=== PATIENT | female | born 1995 | race Caucasian/White ===

== ENCOUNTER 2018-03-20 21:48 | Emergency (ER) | payer OTHER ==
[~2018-03-20] VITALS: Ht 154.9 cm; Wt 74.4 kg
[2018-03-20 21:56] VITALS: BP 156/62
[2018-03-20] MEDS ORDERED: NACL 0.9% 1,000 ML IV SCH (23:14)
[2018-03-20] MEDS ORDERED: KETOROLAC 30 MG/ML VIAL IVP ONE (23:15)
[2018-03-20] MEDS ORDERED: LORazepam 1 MG TAB PO ONE (23:15)
[2018-03-20] MEDS ORDERED: ONDANSETRON 4 MG/2 ML VIAL IVP ONE (23:15)
[2018-03-20] MEDS ORDERED: MORPHINE SULFATE 4 MG/ML SYR IVP ONE (23:15)
[2018-03-20 23:32] LABS: BASOPHILS % (AUTO) 0.3 % (0.0-2.0); EOSINOPHILS # (AUTO) 0.2 K/uL (0-0.4); EOSINOPHILS % (AUTO) 1.4 % (0.0-4.0); HEMATOCRIT 40.8 % (36-48); HEMOGLOBIN 13.4 g/dL (12.0-16.0); LYMPHOCYTES # (AUTO) 2.6 K/uL (2.5-16.5); LYMPHOCYTES % (AUTO) 19.9 % (20.5-51.1); MEAN CORPUSCULAR HEMOGLOBIN 32 pg (27-31); MEAN CORPUSCULAR HGB CONC 33 g/dL (33-37); MEAN CORPUSCULAR VOLUME 96.5 fL (80-94); MONOCYTES # (AUTO) 1.9 K/uL (0.8-1.0); MONOCYTES % (AUTO) 14.7 % (1.7-9.3); NEUTROPHILS # (AUTO) 8.3 K/uL (1.8-7.7); NEUTROPHILS % (AUTO) 63.7 % (42.2-75.2); PLATELET COUNT (AUTO) 286 K/uL (140-450); RED BLOOD CELL COUNT(AUTO) 4.23 MIL/uL (4.20-5.40); RED CELL DISTRIBUTION WIDTH 13.3 % (11.6-13.7); WHITE BLOOD COUNT (AUTO) 13.1 K/uL (4.8-10.8)
[2018-03-20 23:44] LABS: BARBITURATE, URINE NEG. ng/ml (NEG <=200); BENZODIAZEPINE, URINE NEG. ng/mL (NEG <=200); CANNABINOID, URINE POS. ng/mL (NEG <=50); COCAINE, URINE NEG. ng/mL (NEG <=300); OPIATE, URINE NEG. ng/mL (NEG <=2000); PHENCYCLIDINE SCREEN,URINE NEG. ng/mL (NEG <=25)
[2018-03-20 23:53] LABS: ALBUMIN 3.2 g/dL (3.4-5.0); ANION GAP 9.5 (8-16); CARBON DIOXIDE 27.5 mmol/L (21-32); CREATININE 0.6 mg/dL (0.6-1.3); TOTAL BILIRUBIN 0.2 mg/dL (0.0-1.0)
[2018-03-21 00:01] LABS: APPEARANCE,URINE CLOUDY (CLEAR); BILIRUBIN,URINE NEGATIVE (NEGATIVE); BLOOD, URINE MODERATE (NEGATIVE); COLOR,URINE YELLOW (YELLOW); LEUKOCYTE ESTERASE ,URINE TRACE (NEGATIVE); NITRITE, URINE POSITIVE (NEGATIVE); UGLUCOSE NEGATIVE (NEGATIVE)
[2018-03-21 00:03] LABS: RBC,URINE 20-50 /HPF (0-5)
[2018-03-21] MEDS ORDERED: cefTRIAXone 1,000 MG VIAL ONE (00:56)
[2018-03-21 02:17] VITALS: BP 156/62
== END 2018-03-21 02:19 | disposition home or self-care (01) ==
LOC: MED 21:48
DX: M54.5 Low back pain (principal); N39.0 Urinary tract infection, site not specified; F15.10 Other stimulant abuse, uncomplicated; J45.909 Unspecified asthma, uncomplicated; I10 Essential (primary) hypertension; F17.210 Nicotine dependence, cigarettes, uncomplicated
CPT/HCPCS: 36415; 74176; 80053; 80305; 81001; 81025; 83690; 85025; 87086; 87186; 96365; 96375; 99285; J0696; J1885; J2270; J2405; 99284

== ENCOUNTER 2021-03-24 15:39 | Emergency (ER) | payer OTHER ==
[~2021-03-24] VITALS: Ht 157.5 cm; Wt 59.4 kg
[2021-03-24 15:44] VITALS: BP 142/85
[2021-03-24] MEDS ORDERED: LORazepam 2 MG/ML VIAL ONE (15:54)
--- NOTE | 2021-03-24 15:58 | NUR ---
Pt taken to bed 06 via rney.
[2021-03-24] MEDS ORDERED: levETIRAcetam 1,000 MG in NACL 0.9% 100 ML IV ONE (16:00)
[2021-03-24] MEDS ORDERED: LORazepam 2 MG/ML VIAL IM ONE (16:00)
--- NOTE | 2021-03-24 16:00 | NUR ---
PT TAKEN TO ROOM BY ALEXYS, WAS HAVING SEIZURE IN HALLWAY. ERMD AND NURSE AT BEDSIDE
--- NOTE | 2021-03-24 16:05 | NUR ---
25 YEAR OLD FEMALE COMPLAINS OF WANTING TO GET REFILL FOR SEIZURE MEDICATION SHE TAKES. PT STATES SHE HAD A SEIZURE EARLIER TODAY, DID NOT HAVE ANY MEDICATION. PT AOX4, BREATHING EVEN AND UNLABORED, SKIN WARM AND DRY. BED IN LOWEST POSITION, LOCKED, BED RAIL UPX1. PMH - DENIES ALLERGIES - NKA
--- NOTE | 2021-03-24 16:05 | NUR ---
PT REFUSED ATIVAN IM INJECTION, STATES SHE DOESNT WANT ANY SHOTS AND REFUSES AFTER INFORMED OF PURPOSE TO PREVENT SEIZURES
--- NOTE | 2021-03-24 16:09 | NUR ---
PHARMACY CALLED REGARDING ANUJA, WILL BRING STAT
--- NOTE | 2021-03-24 16:11 | NUR ---
PT ON PHONE WITH MOTHER AGITATED AND SCREAMING THAT SHE WILL LEAVE AND DOES NOT WANT TO BE HERE AND ONLY WANTS PRESCRIPTION
--- NOTE | 2021-03-24 16:55 | NUR ---
2MG IM ATIVAN WASTED
--- NOTE | 2021-03-24 17:45 | NUR ---
PT STATES SHE WANTS TO LEAVE RIGHT NOW OR IS GOING TO WALK OUT, ERMD AWARE
[2021-03-24] MEDS ORDERED: LEVE750T3 PO (17:46)
[2021-03-24 17:50] VITALS: BP 138/81
--- NOTE | 2021-03-24 17:50 | NUR ---
Patient discharged with v/s stable. Written and verbal after care instructions about seizures given and explained. Patient alert, oriented and verbalized understanding of instructions. Ambulatory with steady gait. All questions addressed prior to discharge. ID band removed. Patient advised to follow up with PMD. Rx of Keppra given. Patient educated on indication of medication including possible reaction and side effects. Opportunity to ask questions provided and answered.
== END 2021-03-24 17:50 | disposition home or self-care (01) ==
LOC: MED 15:39
DX: R56.9 Unspecified convulsions (principal); J45.909 Unspecified asthma, uncomplicated; I10 Essential (primary) hypertension; G40.909 Epilepsy, unspecified, not intractable, without status epilepticus; F17.200 Nicotine dependence, unspecified, uncomplicated; F12.90 Cannabis use, unspecified, uncomplicated; F15.90 Other stimulant use, unspecified, uncomplicated; Z79.899 Other long term (current) drug therapy
CPT/HCPCS: 96365; 99284; J1953; J2060

== ENCOUNTER 2024-03-16 19:57 | Emergency (ER) | payer OTHER ==
[~2024-03-16] VITALS: Ht 154.9 cm; Wt 55.8 kg
[~2024-03-16 19:57] MED LIST: LEVE750T3 PO
[2024-03-16 20:03] VITALS: BP 125/71; PULSE 61; RESP 20; TEMP 98; O2SAT 98
[2024-03-16] MEDS ORDERED: ACET-10509 PO (20:54)
[2024-03-16] MEDS: ACETAMINOPHEN EXTRA STRENGTH 500 MG TAB PO ONE (21:00)
== END 2024-03-16 21:15 | disposition home or self-care (01) ==
LOC: MED 19:57
DX: S00.03XA Contusion of scalp, initial encounter (principal); J45.909 Unspecified asthma, uncomplicated; I10 Essential (primary) hypertension; Z86.69 Personal history of other diseases of the nervous system and sense organs; Z79.899 Other long term (current) drug therapy; W22.8XXA Striking against or struck by other objects, initial encounter; Y92.89 Other specified places as the place of occurrence of the external cause; Y93.89 Activity, other specified; Y99.8 Other external cause status
CPT/HCPCS: 70450; 99284

== ENCOUNTER 2024-04-02 04:25 | Emergency (ER) | payer OTHER ==
[~2024-04-02] VITALS: Ht 157.5 cm; Wt 54.4 kg
[~2024-04-02 04:25] MED LIST changes: +ACET500T99 PO
[2024-04-02 04:40] VITALS: BP 152/96; PULSE 115; RESP 20; TEMP 99.3; O2SAT 98
[2024-04-02 04:48] VITALS: O2SAT 98
[2024-04-02] MEDS: KETOROLAC 60 MG/2 ML VIAL IM ONE (05:06)
== END 2024-04-02 05:20 | disposition home or self-care (01) ==
LOC: MED 04:25
DX: S00.33XA Contusion of nose, initial encounter (principal); J45.909 Unspecified asthma, uncomplicated; F17.200 Nicotine dependence, unspecified, uncomplicated; Z86.69 Personal history of other diseases of the nervous system and sense organs; Z79.899 Other long term (current) drug therapy; W22.8XXA Striking against or struck by other objects, initial encounter; Y92.89 Other specified places as the place of occurrence of the external cause; Y93.89 Activity, other specified; Y99.8 Other external cause status
CPT/HCPCS: 96372; 99283; J1885

== ENCOUNTER 2024-05-08 23:38 | Emergency (ER) | payer OTHER ==
[~2024-05-08] VITALS: Ht 154.9 cm; Wt 56.2 kg
[2024-05-08 23:50] VITALS: BP 137/86; PULSE 71; RESP 18; TEMP 98.1; O2SAT 100
[2024-05-09 00:28] VITALS: BP 125/84; PULSE 75; RESP 17
[2024-05-09 00:30] VITALS: O2SAT 100
[2024-05-09] MEDS: ACETAMINOPHEN EXTRA STRENGTH 500 MG TAB PO ONE (00:39)
[2024-05-09] MEDS: IBUPROFEN 600 MG TAB PO ONE (00:51)
[2024-05-09] MEDS ORDERED: IBUP-2213 PO (01:59)
== END 2024-05-09 02:14 | disposition home or self-care (01) ==
LOC: MED 23:38
DX: R07.89 Other chest pain (principal); J45.909 Unspecified asthma, uncomplicated; Z86.69 Personal history of other diseases of the nervous system and sense organs; Z79.899 Other long term (current) drug therapy
CPT/HCPCS: 71045; 93005; 99283; Q0092